=== PATIENT | male | born 1980 | race American Indian/Alaskan Native ===

== ENCOUNTER 2019-03-05 13:01 | Emergency (ER) | payer OTHER ==
--- NOTE | 2019-03-05 13:58 | Event Note ---
ED Screening Note ED Screening Note: states he has been having lower abdominal pain three days ago +n/v/d states he is only having a couple of episodes no fever PMHx none no allergies to meds non smoker +occ ETOH no drug use This initial assessment/diagnostic orders/clinical plan/treatment(s) is/are subject to change based on patients health status, clinical progression and re- assessment by fellow clinical providers in the ED. Further treatment and workup at subsequent clinical providers discretion. Patient/guardian urged not to elope from the ED as their condition may be serious if not clinically assessed and managed. Initial orders include: labs, UA
[2019-03-05 15:18] LABS: Basophils % (Auto) 0.2 % (0.0-1.8); Eosinophils # (Auto) 0.1 K/mm3 (0.0-0.4); Eosinophils % (Auto) 0.8 % (0.0-4.3); Hematocrit 49.5 % (35.5-45.6); Hemoglobin 16.9 gm/dl (11.8-15.2); Lymphocytes # (Auto) 2.2 K/mm3 (1.2-5.4); Lymphocytes % (Auto) 28.2 % (13.4-35.0); Mean Corpuscular HGB Conc 34 % (32-34); Mean Corpuscular Volume 92 fl (84-94); Monocytes # (Auto) 0.5 K/mm3 (0.0-0.8); Monocytes % (Auto) 6.3 % (0.0-7.3); Platelet Count 205 K/mm3 (140-440); Red Blood Count 5.38 M/mm3 (3.65-5.03); Red Cell Distribution Width 13.1 % (13.2-15.2)
[2019-03-05 15:41] LABS: Alanine Aminotransferase 61 units/L (7-56); BUN/Creatinine Ratio 7; Blood Urea Nitrogen 8 mg/dL (9-20); Calcium 9.6 mg/dL (8.4-10.2); Hemolysis Index 40
[2019-03-05 16:05] LABS: Bilirubin,Urine NEG (Negative); Blood,Urine NEG (Negative); Color,Urine Yellow (Yellow); Mucus,Urine FEW /HPF; Protein,Urine <15 mg/dL mg/dL (Negative); Urobilinogen,Urine < 2.0 mg/dL (<2.0)
[2019-03-05] MEDS ORDERED: fentaNYL 100 MCG/2 ML INJ IV ONE (18:36)
[2019-03-05] MEDS ORDERED: SODIUM CHLORIDE 0.9% 1000 ML 1,000 ML IV ONE (18:36)
[2019-03-05] MEDS ORDERED: ONDANSETRON 4 MG/2 ML INJ IV ONE (18:36)
--- NOTE | 2019-03-05 18:46 | Emergency Department Report ---
HPI - General Chief Complaint: Weakness Time Seen by Provider: 03/05/19 13:55 - HPI HPI: Room 43 The patient is a 38-year-old male presenting with the chief complaint of abdominal pain. Patient states his symptoms began 03/02/2019 with nausea vomiting and diarrhea. Patient placed lower abdominal pain. Patient describes his pain as aching and constant in nature. Patient states she has not eaten anything since yesterday because is afraid to throw it back up. Patient was to subjective fever. Patient currently gives his abdominal pain a score of 7/10. Location: [See above] Duration: [See above] Quality: [See above] Severity: [See above] Timing: [See above] Context: [See above] Modifying factors: [See above] Associated signs and symptoms: [see above] ED Past Medical Hx - Past Medical History Previous Medical History?: No - Surgical History Past Surgical History?: No - Family History Family history: no significant - Social History Smoking Status: Never Smoker Substance Use Type: None (denies illicit drug use), Alcohol (occasional) - Medications Home Medications: Home Medications Medication Instructions Recorded Confirmed Last Taken Type Ciprofloxacin HCl [Ciprofloxacin 500 mg PO Q12HR #14 tab 03/05/19 Unknown Rx TAB] Diphenoxylate/Atropine [Lomotil] 2 tab PO QID PRN #20 tablet 03/05/19 Unknown Rx HYDROcodone/APAP 5-325 [[place] 1 - 2 each PO Q6HR PRN #10 tablet 03/05/19 Unknown Rx 5/325] Promethazine [Phenergan] 25 mg PO Q6HR PRN #20 tab 03/05/19 Unknown Rx Promethazine [Phenergan] 25 mg IN Q6HR PRN #5 supp.rect 03/05/19 Unknown Rx ED Review of Systems ROS: Stated complaint: FLU SX Other details as noted in HPI Constitutional: fever (subjective) Eyes: denies: eye pain ENT: denies: throat pain Respiratory: no symptoms reported Cardiovascular: denies: chest pain Endocrine: no symptoms reported Gastrointestinal: abdominal pain, nausea, vomiting, diarrhea Genitourinary: denies: dysuria Musculoskeletal: denies: back pain Neurological: denies: headache Physical Exam - Physical Exam Physical Exam: GENERAL: The patient is well-developed well-nourished male sitting in chair not appearing to be in acute distress. [] HEENT: Normocephalic. Atraumatic. Extraocular motions are intact. Patient has moist mucous membranes. NECK: Supple. Trachea midline CHEST/LUNGS: Clear to auscultation. There is no respiratory distress noted. HEART/CARDIOVASCULAR: Regular. There is no tachycardia. There is no gallop rub or murmur. ABDOMEN: Abdomen is soft, with discomfort to palpation in the suprapubic and left lower quadrant. Patient has normal bowel sounds. There is no abdominal di stention. SKIN: There is no rash. There is no edema. There is no diaphoresis. NEURO: The patient is awake, alert, and oriented. The patient is cooperative. The patient has normal speech MUSCULOSKELETAL: There is no evidence of acute injury. ED Course - Reevaluation(s) Reevaluation #1: 03/05/19 20:34 Patient tolerating po ED Medical Decision Making - Lab Data Result diagrams: 03/05/19 14:57 03/05/19 14:57 Laboratory Tests 03/05/19 03/05/19 03/05/19 14:57 14:57 Unknown WBC 7.8 RBC 5.38 H Hgb 16.9 H Hct 49.5 H MCV 92 MCH 31 MCHC 34 RDW 13.1 L Plt Count 205 Lymph % (Auto) 28.2 [place] % (Auto) 6.3 Eos % (Auto) 0.8 Baso % (Auto) 0.2 Lymph # 2.2 [place] # 0.5 Eos # 0.1 Baso # 0.0 Seg Neutrophils % 64.5 Seg Neutrophils # 5.0 Sodium 135 L Potassium 4.5 Chloride 101.7 Carbon Dioxide 17 L Anion Gap 21 BUN 8 L Creatinine 1.1 Estimated GFR > 60 BUN/Creatinine Ratio 7 Glucose 86 Calcium 9.6 Total Bilirubin 0.70 AST 32 ALT 61 H Alkaline Phosphatase 96 Total Protein 8.5 H Albumin 5.0 Albumin/Globulin Ratio 1.4 Lipase 18 Urine Color Yellow Urine Turbidity Clear Urine pH 5.0 Ur Specific [place] 1.008 Urine Protein <15 mg/dl Urine Glucose (UA) Neg Urine Ketones Neg Urine Blood Neg Urine Nitrite Neg Urine Bilirubin Neg Urine Urobilinogen < 2.0 Ur Leukocyte Esterase Neg Urine WBC (Auto) 1.0 Urine RBC (Auto) 1.0 Urine Mucus Few - Radiology Data CT abdomen and pelvis- Abnormal appearance of distal small bowel most consistent with enteritis. No evidence of mechanical obstruction - Differential Diagnosis gastroenteritis, partial small bowel obstruction, diverticulitis, pancreati Critical care attestation.: If time is entered above; I have spent that time in minutes in the direct care of this critically ill patient, excluding procedure time. ED Disposition Clinical Impression: Acute abdominal pain, Acute gastroenteritis Disposition: TO HOME OR SELFCARE Is pt being admited?: No Does the pt Need Aspirin: No Condition: Stable Instructions: Gastroenteritis (ED) Additional Instructions: Return to the emergency department should you develop worsening symptoms, inability to tolerate food or liquids, high fever or any other concerns Prescriptions: Ciprofloxacin HCl [Ciprofloxacin TAB] 500 mg PO Q12HR #14 tab Diphenoxylate/Atropine [Lomotil] 2 tab PO QID PRN #20 tablet PRN Reason: Diarrhea HYDROcodone/APAP 5-325 [[place] 5/325] 1 - 2 each PO Q6HR PRN #10 tablet PRN Reason: Pain Promethazine [Phenergan] 25 mg PO Q6HR PRN #20 tab PRN Reason: Nausea Promethazine [Phenergan] 25 mg IN Q6HR PRN #5 supp.rect PRN Reason: Vomiting Referrals: JOLYNN SPRAGUE MD [Staff Physician] - 3-5 Days (Dr. Sprague is a gastroenter ologist. Please follow up with him for further evaluation) Time of Disposition: 20:34
--- NOTE | 2019-03-05 20:19 | Cat Scan Report ---
CT abdomen pelvis w con INDICATION / CLINICAL INFORMATION: MAIN: suprapubic, LLQ abdominal pain . NAUSEA, VOMITING, DIARRHEA. 100 ML OMNIPAQUE 300. TECHNIQUE: Axial CT imaging of abdomen and pelvis was obtained with IV contrast. Coronal and sagittal reformatte d imaging obtained and reviewed. All CT scans at this location are performed using CT dose reduction for ALARA by means of automated exposure control. COMPARISON: None available. FINDINGS: CT abdomen with contrast demonstrates normal appearance of the liver, spleen, pancreas, kidneys, and adrenal glands. No obvious gallbladder pathology. CT pelvis with contrast demonstrates several fluid-filled small bowel loops throughout the pelvis. No ne of the bowel loops are abnormally dilated, but the appearance does suggest the presence of enterit is. A normal appendix is present. Incidental note is made of an appendicolith in the distal appendix. No pelvic mass or free fluid is identified. The remainder of the GI tract is unremarkable. Visualized lung bases are clear. No significant osseous abnormality noted. IMPRESSION: 1. Abnormal appearance of distal small bowel. The appearance is most suggestive of enteritis. There i s no evidence for mechanical bowel obstruction at this time. Please correlate with clinical presentat ion. Signer Name: Doretha Yang MD Signed: 03/05/2019 8:15 PM Workstation Name: [id number]
[2019-03-05 21:37] VITALS: BP 132/87
== END 2019-03-05 21:00 | disposition home or self-care (01) ==
LOC: ED 13:01
DX: K52.9 Noninfective gastroenteritis and colitis, unspecified (principal); Z79.899 Other long term (current) drug therapy
CPT/HCPCS: 36415; 74177; 80053; 81001; 83690; 85025; 96361; 96374; 96375; 99284; J2405; J3010; J7030; Q9967

== ENCOUNTER 2021-04-08 20:41 | Emergency (ER) | payer OTHER ==
[2021-04-09 07:24] VITALS: BP 167/99
== END 2021-04-09 07:24 | disposition home or self-care (01) ==
LOC: ED 20:41
DX: M79.673 Pain in unspecified foot (principal); Z53.21 Procedure and treatment not carried out due to patient leaving prior to being seen by health care provider